=== PATIENT | male | born 1970 | race Caucasian/White ===

== ENCOUNTER 2021-09-03 17:05 | Emergency (ER) | payer BC, MEDICAID ==
[2021-09-03] MEDS ORDERED: Ketorolac 60 MG/2 ML SDV IM ONE (18:45)
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
== END 2021-09-03 18:58 | disposition home or self-care (01) ==
LOC: JD.ED 17:05
DX: S61.452A Open bite of left hand, initial encounter (principal); S61.451A Open bite of right hand, initial encounter; W54.0XXA Bitten by dog, initial encounter
CPT/HCPCS: 96372; 99283; J1885